=== PATIENT | female | born 1970 | race Caucasian/White ===

== ENCOUNTER 2018-10-07 09:51 | Emergency (ER) | payer OTHER ==
[~2018-10-07] VITALS: Ht 154.9 cm; Wt 52.3 kg
[2018-10-07 09:59] VITALS: BP 146/107
== END 2018-10-07 11:50 | disposition home or self-care (01) ==
LOC: EMS 09:52
DX: F10.239 Alcohol dependence with withdrawal, unspecified (principal); F11.10 Opioid abuse, uncomplicated; F13.10 Sedative, hypnotic or anxiolytic abuse, uncomplicated; F17.210 Nicotine dependence, cigarettes, uncomplicated; Y90.9 Presence of alcohol in blood, level not specified
CPT/HCPCS: 99406

== ENCOUNTER 2018-10-10 01:12 | Emergency (ER) | payer OTHER ==
[~2018-10-10] VITALS: Ht 154.9 cm; Wt 50.0 kg
[2018-10-10 01:24] VITALS: BP 122/78
[2018-10-10] MEDS ORDERED: LORazepam 1 MG TABLET PO ONE (03:45)
== END 2018-10-10 04:55 | disposition home or self-care (01) ==
LOC: EMS 01:13
DX: F41.9 Anxiety disorder, unspecified (principal); F11.90 Opioid use, unspecified, uncomplicated; F19.90 Other psychoactive substance use, unspecified, uncomplicated; F17.210 Nicotine dependence, cigarettes, uncomplicated

== ENCOUNTER 2018-10-11 01:16 | Emergency (ER) | payer OTHER ==
[~2018-10-11] VITALS: Ht 154.9 cm; Wt 50.0 kg
[2018-10-11] MEDS ORDERED: LORazepam 1 MG TABLET PO ONE (03:15)
[2018-10-11 04:04] VITALS: BP 138/86
== END 2018-10-11 04:05 | disposition home or self-care (01) ==
LOC: EMS 01:16
DX: F41.9 Anxiety disorder, unspecified (principal); F17.210 Nicotine dependence, cigarettes, uncomplicated; F13.10 Sedative, hypnotic or anxiolytic abuse, uncomplicated; F11.90 Opioid use, unspecified, uncomplicated; Z98.51 Tubal ligation status